=== PATIENT | female | born 2000 | race Caucasian/White ===

== ENCOUNTER → 2024-06-15 08:22 | Outpatient (CLI) | payer OTHER, SELFPAY ==
[2024-06-15 09:46] LABS: Hematocrit 41.4 % (36-46); Hemoglobin 13.8 g/dL (12.0-16.0); Mean Corpuscular HGB Conc 33.2 % (30-36); Mean Corpuscular Hemoglobin 29.1 PG (26-34); Mean Corpuscular Volume 87.6 fL (80-100); Platelet Count 205 X10^3/uL (150-400); Red Blood Cell Count 4.73 X10^6/uL (4.0-5.2); Red Cell Distribution Width 12.9 % (11.6-14.8); White Blood Cell Count 5.3 X10^3/uL (4.5-11.0)
[2024-06-15 10:07] LABS: Neutrophils Absolute Manual 3445 /uL (3000-5900); RBC Morphology Normal Morphology; Total Cells Counted 100
[2024-06-15 10:16] LABS: HEMOLYSIS < 15 (0-50); Iron 107 ug/dL (37-170)
[2024-06-15 10:20] LABS: Alanine Aminotransferase 16 IU/L (<35); Albumin 4.8 g/dL (3.5-5.0); Albumin Globulin Ratio 1.9 (1.0-2.8); Alkaline Phosphatase 52 U/L (38-126); Aspartate Aminotransferase 26 IU/L (14-36); Bilirubin Total 0.5 mg/dL (0.2-1.3); Blood Urea Nitrogen 12 mg/dL (7-17); Calcium 9.6 mg/dL (8.4-10.2); Carbon Dioxide 25 mmol/L (22-32); Chloride 103 mmol/L (98-107); Estimated Glomerular Filt Rate > 60 mL/min (>60); Globulin 2.5 g/dL (1.7-4.1); Glucose 79 mg/dL (70-100); HEMOLYSIS < 15 (0-50); Potassium 4.4 mmol/L (3.4-5.1); Sodium 139 mmol/L (137-145); Total Protein 7.3 g/dL (6.3-8.2)
[2024-06-15 10:29] LABS: Percent Iron Saturation 40 % (15-50); Total Iron Binding Capacity 270 ug/dL (265-497); Transferrin 242 mg/dL (206-381)
[2024-06-15 10:36] LABS: Free T4, Direct Thyroxine 0.86 ng/dL (0.78-2.19)
[2024-06-15 10:50] LABS: Thyroid Stimulating Hormone 1.25 uIU/mL (0.47-4.68)
[2024-06-15 10:58] LABS: Ferritin 26 ng/mL (6-137)
[2024-06-15 11:26] LABS: Folate 12.1 ng/mL (2.76-20.0); Vitamin B12 331 pg/mL (239-931)
== END ==
PROVIDERS: PCP Student in an Organized Health Care Education/Training Program; Referring Provider Student in an Organized Health Care Education/Training Program; Visit Provider Student in an Organized Health Care Education/Training Program
DX: R53.83 Other fatigue (principal)
CPT/HCPCS: 36415; 80053; 82607; 82728; 82746; 83540; 83550; 84439; 84443; 85025